=== PATIENT | female | born 1950 | race Caucasian/White ===

== ENCOUNTER 2017-08-24 11:41 | Emergency (ER) | payer OTHER, BC ==
[~2017-08-24] VITALS: Ht 167.6 cm; Wt 91.1 kg
[2017-08-24] MEDS ORDERED: PERCOCET 5/31 TABLET PO (13:21)
[2017-08-24 13:47] VITALS: BP 188/95
== END 2017-08-24 14:12 | disposition home or self-care (01) ==
LOC: EME 11:41
PROC: 2W3CX1Z Immobilization of Right Lower Arm using Splint (ICD-10-PCS; principal; 2017-08-24)
DX: S59.291A Other physeal fracture of lower end of radius, right arm, initial encounter for closed fracture (principal); W19.XXXA Unspecified fall, initial encounter; E78.5 Hyperlipidemia, unspecified; I10 Essential (primary) hypertension; E11.9 Type 2 diabetes mellitus without complications; Z88.0 Allergy status to penicillin
CPT/HCPCS: 73110; 99281; 99283